=== PATIENT | female | born 2000 | race Caucasian/White ===

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

== ENCOUNTER → 2018-03-05 06:55 | Outpatient (CLI) | payer OTHER | END | disposition home or self-care (01) | LOC: LAB 06:55 | DX: E03.8 Other specified hypothyroidism (principal); M32.10 Systemic lupus erythematosus, organ or system involvement unspecified ==

== ENCOUNTER → 2018-04-10 07:41 | Outpatient (CLI) | payer OTHER | END | disposition home or self-care (01) | LOC: LAB 07:41 | DX: M32.10 Systemic lupus erythematosus, organ or system involvement unspecified (principal) ==

== ENCOUNTER 2018-04-13 09:13 | Outpatient (CLI) | payer OTHER | END 2018-04-13 09:21 | disposition home or self-care (01) | LOC: SONOGRAMA 09:13 | DX: R10.816 Epigastric abdominal tenderness (principal); R11.0 Nausea ==

== ENCOUNTER 2018-04-13 09:20 | Outpatient (CLI) | payer OTHER | END 2018-04-13 09:28 | disposition home or self-care (01) | LOC: LAB 09:20 | DX: R10.816 Epigastric abdominal tenderness (principal); R11.0 Nausea ==

== ENCOUNTER 2018-05-27 07:48 | Emergency (ER) | payer OTHER ==
[~2018-05-27] VITALS: Ht 165.1 cm; Wt 59.9 kg
[2018-05-27] MEDS ORDERED: PREDNISONE10 MG PO (08:01)
[2018-05-27] MEDS ORDERED: HYDROXYCHLOROQ200 MG PO (08:02)
[2018-05-27] MEDS ORDERED: XATMEP2.5 MG/1 M PO (08:03)
== END 2018-05-27 09:58 | disposition home or self-care (01) ==
LOC: ER 07:48
DX: H60.8X2 Other otitis externa, left ear (principal); J22 Unspecified acute lower respiratory infection

== ENCOUNTER 2018-06-11 07:34 | Outpatient (CLI) | payer OTHER ==
[~2018-06-11 07:34] MED LIST changes: +HYDROXYCHLOROQ200 MG PO; +PREDNISONE10 MG PO; +XATMEP2.5 MG/1 M PO
== END 2018-06-11 07:41 | disposition home or self-care (01) ==
LOC: LAB 07:34
DX: M32.10 Systemic lupus erythematosus, organ or system involvement unspecified (principal)

== ENCOUNTER → 2018-08-27 06:35 | Outpatient (CLI) | payer OTHER | END | disposition home or self-care (01) | LOC: LAB 06:35 | DX: M32.10 Systemic lupus erythematosus, organ or system involvement unspecified (principal) ==

== ENCOUNTER 2022-01-18 14:03 | Emergency (ER) | payer OTHER ==
[~2022-01-18] VITALS: Ht 165.1 cm; Wt 59.0 kg
[2022-01-18] MEDS ORDERED: BENLYSTA200 MG/1 M (14:23)
[2022-01-18] MEDS ORDERED: BACTRIM DS TAB1 EACH PO (19:37)
== END 2022-01-18 19:43 | disposition home or self-care (01) ==
LOC: ER 14:03
DX: N39.0 Urinary tract infection, site not specified (principal); R10.13 Epigastric pain; M32.9 Systemic lupus erythematosus, unspecified; Z20.822 Contact with and (suspected) exposure to COVID-19

== ENCOUNTER 2022-03-11 22:33 | Emergency (ER) | payer OTHER ==
[~2022-03-11] VITALS: Ht 165.1 cm; Wt 59.0 kg
[~2022-03-11 22:33] MED LIST changes: +BACTRIM DS TAB1 EACH PO; +BENLYSTA200 MG/1 M
[2022-03-12] MEDS ORDERED: PEPCID20 MG PO (03:12)
== END 2022-03-12 03:30 | disposition home or self-care (01) ==
LOC: ER 22:33
DX: K29.70 Gastritis, unspecified, without bleeding (principal); Z87.898 Personal history of other specified conditions; Z20.822 Contact with and (suspected) exposure to COVID-19

== ENCOUNTER 2022-03-12 11:06 | Emergency (ER) | payer OTHER ==
[~2022-03-12] VITALS: Ht 165.1 cm; Wt 59.0 kg
[~2022-03-12 11:06] MED LIST changes: +PEPCID20 MG PO
== END 2022-03-12 15:48 | disposition home or self-care (01) ==
LOC: ER 11:06
DX: K21.9 Gastro-esophageal reflux disease without esophagitis (principal); R10.13 Epigastric pain; Z20.822 Contact with and (suspected) exposure to COVID-19